=== PATIENT | female | born 1965 | race Asian ===

== ENCOUNTER → 2016-11-09 | Outpatient (CLI) | payer OTHER ==
--- NOTE | 2016-11-09 11:30 | DX ---
Left Elbow Series, 3 Views History: Left elbow pain after falling on the ice last evening.. Findings: Osseous structures are intact without fracture. There is no elbow joint effusion. Soft tiss ues are unremarkable. The elbow joint space is normal. Small marginal osteophyte is seen along the me dial aspect of the elbow joint. Impression: 1. No acute osseous abnormality seen about the left elbow. 2. Small marginal osteophyte medial elbow joint.
== END ==
LOC: BMCIMAGING 10:53
PROVIDERS: ATTEND Emergency Medicine
DX: M25.522 Pain in left elbow (principal); W00.0XXA Fall on same level due to ice and snow, initial encounter; M25.722 Osteophyte, left elbow